=== PATIENT | female | born 1970 | race Caucasian/White ===

== ENCOUNTER → 2025-11-18 | Outpatient (CLI) | payer BC, SELFPAY ==
--- NOTE | 2025-11-18 09:33 | XR_ITS ---
Examination: Bilateral hands, 3 views. Technique: AP, Oblique, Lateral each hand total 6 views Date and time of exam: 11/18/2025 at 9:55 a.m. Clinical history bilateral hand pain for 6 months no trauma Findings: Right hand: No bony or soft tissue abnormalities are identified. All of the visible joint spaces in the wrist and hand appear all right. Left hand: 1 no bony or soft tissue abnormalities are seen, the visible joint spaces appear essentially normal IMPRESSION: 1. The radiographs of the right hand are entirely normal 2 the radiographs of the left hand are entirely normal
== END | disposition home or self-care (01) ==
LOC: CDIM 09:17
PROVIDERS: PCP Family Medicine; Referring Provider Registered Nurse; Visit Provider Registered Nurse
DX: M79.641 Pain in right hand (principal); M79.642 Pain in left hand; R22.9 Localized swelling, mass and lump, unspecified
CPT/HCPCS: 73130